=== PATIENT | male | born 1945 | race Caucasian/White ===

== ENCOUNTER 2022-05-08 07:44 | Emergency (ER) | payer OTHER ==
[~2022-05-08] VITALS: Ht 172.7 cm; Wt 63.5 kg
[2022-05-08] MEDS ORDERED: ASPIRIN (07:51)
[2022-05-08] MEDS ORDERED: IV NORMAL SALINE 500 ML BAG IV ONE ×2 (08:00→10:15)
[2022-05-08] MEDS ORDERED: ACETAMINOPHEN ES 500 MG TABLET PO ONE (08:00)
[2022-05-08] MEDS ORDERED: FENTANYL CITRATE 100 MCG/2 ML AMPUL IV ONE (08:15)
[2022-05-08] MEDS ORDERED: LIDOCAINE 1%-EPI 1:100,000 20 ML VIAL ONE (08:17)
[2022-05-08 08:18] LABS: HEMATOCRIT 36.6 % (36.7-47.1); PLATELET COUNT (AUTO) 357 K/uL (152-348)
[2022-05-08] MEDS ORDERED: IV NORMAL SALINE 250 ML IV ONE (08:25)
[2022-05-08] MEDS ORDERED: SWABABLE VALVE TRANSFER SET EA MC ONE (08:25)
[2022-05-08] MEDS ORDERED: IOHEXOL 300MG/ML 100 ML INFUS..BTL ONE (08:25)
[2022-05-08 08:26] LABS: CARBON DIOXIDE 32 mmol/L (21-32); CHLORIDE 102 mmol/L (98-107); CREATININE 0.9 mg/dL (0.6-1.3); GLUCOSE 125 mg/dL (74-106); POTASSIUM 3.5 mmol/L (3.5-5.1); UREA NITROGEN, BLOOD 17 mg/dL (7-18)
[2022-05-08] MEDS ORDERED: FENTANYL CITRATE 100 MCG/2 ML AMPUL ONE (08:32)
[2022-05-08 08:35] LABS: ALANINE AMINOTRANSFERASE 18 U/L (16-63); ALKALINE PHOSPHATASE 118 U/L (50-136); ASPARTATE AMINOTRANSFERASE 10 U/L (15-37); BILIRUBIN,DIRECT 0.1 mg/dL (0.0-0.2); BILIRUBIN,TOTAL 0.3 mg/dL (0.2-1.0); CREATINE KINASE, TOTAL 113 U/L (39-308); TOTAL PROTEIN, SERUM 6.8 g/dL (6.4-8.2)
--- NOTE | 2022-05-08 09:08 | NUR ---
PATIENT BIBEMS FROM HOME, S/P MECHANICAL FALL ONTO A PROCELAIN TRASH CAN THAT BROKE. PATIENT SUSTAINED MULTIPLE LACERATIONS TO HIS MID/LOWERR BACK, COCCYX/INNER (RT) BUTTOCK FOLD. PATIENT is A/O X 2, BUT OBSERVED WITH FACIAL GRIMACE AND FREQUENT POSITION CHANGE. PATIENT SEEN BY THE MD, #20G ANGIO-CATH INSERYTED TO (RT) A/C , BLOOD COLLECTED AND SENT.AND SITES CLEANED AND SUTURES AND HUONG IN PLACE. PATIENT MEDICATED FOR PAIN. PATIENT STABLE TRANSPORTED SAFETY TO CT FOR ADDITIONAL DIAGNOSTIC TYEST. PATIENT IS STABLE ON THE STRETCHER ION THE LOWEST POSITION, CALL PAINTING WITHIN REACH, AT THE BEDSIDE AND AWAITING DISPOSITION.
[2022-05-08] MEDS ORDERED: ACETAMINOPHEN ES 500 MG TABLET ONE (10:15)
[2022-05-08 10:27] LABS: HEMATOCRIT 34.1 % (36.7-47.1); MEAN CORPUSCULAR HEMOGLOBIN 29.7 uug (23.8-33.4); MEAN CORPUSCULAR VOLUME 91.7 fL (73.0-96.2); PLATELET COUNT (AUTO) 320 K/uL (152-348)
--- NOTE | 2022-05-08 15:45 | NUR ---
Patient continues to be observed with hypotension, afetr 1 liter of NS administration. Patient seen by the MD, 1 unit PRBC ordered. Patient S/P 15 minutes started and patient is tolerating the transfusion, educated on the S/S to inform if he is experiencing any symptoms. Patient is stable on the stretcher in the lowestposition, call wilcox within reach and the is at the bedside.
--- NOTE | 2022-05-08 17:45 | NUR ---
Patient completed and tolerated the transfusion. Patient is stable on the stretcher in the lowestposition, call wilcox within reach and the is at the bedside.
--- NOTE | 2022-05-08 18:00 | NUR ---
Called [facility] for higher level of care transfer per Dr. Richard request. Spoke with Genie and spoke with the ER physician at [place]. Per Dr.Hawk Silverio gave her auth to transfer pt to another facility for higher level of care.
[2022-05-08 19:00] LABS: MEAN CORPUSCULAR HEMOGLOBIN 29.6 uug (23.8-33.4); MEAN CORPUSCULAR VOLUME 92.9 fL (73.0-96.2); PLATELET COUNT (AUTO) 355 K/uL (152-348)
[2022-05-08] MEDS ORDERED: PIPERACILLIN SODIUM/TAZOBACTAM 3.375 G in IV DEXTROSE 5% 50 ML IV ONE (19:30)
[2022-05-08] MEDS ORDERED: PIPERACILLIN/TAZOBACTAM/D5W 50 ML IV ONE (20:02)
--- NOTE | 2022-05-08 20:34 | NUR ---
Received pt. from RN am shift. VSS at this time. at bedside.
--- NOTE | 2022-05-08 21:03 | NUR ---
Called [facility] for transfer of care, no availability at this time
--- NOTE | 2022-05-08 21:46 | NUR ---
CALLED [facility] , SPOKE TO NYASIA WHO STATES THEY ARE UNABLE TO ACCEPT PATIENT DUE TO THEY ARE ON DIVERSION AND ARE AT CAPACITY.
--- NOTE | 2022-05-08 21:50 | NUR ---
CALLED [facility] AND SPOKE TO JOVANY WHO STATES THEY ARE UNABLE TO ACCEPT PATIENT AT THIS TIME DUE TO BEING AT MAX CAPACITY AND ON DIVERSION.
[2022-05-08 22:36] LABS: *BILIRUBIN,URIN NEGATIVE (NEGATIVE); *BLOOD, URINE NEGATIVE (NEGATIVE); *CLARITY,URINE CLEAR (CLEAR); *KETONES,URINE NEGATIVE (NEGATIVE); *UROBILINOGEN,URINE 0.2 E.U./dl (NORMAL); NITRITE, URINE NEGATIVE (NEGATIVE); UGLUCOSE NEGATIVE (NEGATIVE)
[2022-05-08 22:44] LABS: *COLOR,URINE HAZY (YELLOW); LEUKOCYTE ESTERASE ,URINE NEGATIVE (NEGATIVE)
[2022-05-08 23:54] LABS: BAND % (MANUAL) 6 % (0-10); LYMPHOCYTES % (MANUAL) 4 % (20-40); MONOCYTES % (MANUAL) 4 % (2-10); NEUTROPHILS % (MANUAL) 86 % (42-75)
[2022-05-09] MEDS ORDERED: IV D5W-0.45% NS +20 KCL 1,000 ML IV ONE ×2 (04:00→04:34)
[2022-05-09] MEDS ORDERED: PIPERACILLIN SODIUM/TAZOBACTAM 3.375 G in IV DEXTROSE 5% 50 ML IV ONE (05:30)
[2022-05-09] MEDS ORDERED: PIPERACILLIN/TAZOBACTAM/D5W 0 ML IV ONE (05:59)
[2022-05-09] MEDS ORDERED: PIPERACILLIN/TAZOBACTAM/D5W 50 ML IV ONE (06:01)
[2022-05-09 06:07] LABS: HEMATOCRIT 32.8 % (36.7-47.1); MEAN CORPUSCULAR HEMOGLOBIN 29.7 uug (23.8-33.4); MEAN CORPUSCULAR VOLUME 91.4 fL (73.0-96.2); PLATELET COUNT (AUTO) 296 K/uL (152-348)
--- NOTE | 2022-05-09 08:16 | NUR ---
Roving Winder assumes care: 1st contact with patient, alseep, easily arousable, calm & cooperative at this time. Spouse is at bedside, pending accepting hospital at the moment. NAD.
--- NOTE | 2022-05-09 09:30 | NUR ---
Patient ate breakfast with good appetite, pending [facility] ambulance at this time. No acute change in condition seen.
--- NOTE | 2022-05-09 10:34 | NUR ---
Patient tranferred to outside facility: [facility] Physician: Sal Location: room 4115 RN Yaron accepted nursing report. [facility] ambulance unit#[id number] PRN staff: diagram clerk Celio accepted SBAR
== END 2022-05-09 10:34 | disposition short-term general hospital (02) ==
LOC: ER 07:44
DX: S21.219A Laceration without foreign body of unspecified back wall of thorax without penetration into thoracic cavity, initial encounter (principal); S31.010A Laceration without foreign body of lower back and pelvis without penetration into retroperitoneum, initial encounter; S31.821A Laceration without foreign body of left buttock, initial encounter; S31.811A Laceration without foreign body of right buttock, initial encounter; S71.012A Laceration without foreign body, left hip, initial encounter; W01.110A Fall on same level from slipping, tripping and stumbling with subsequent striking against sharp glass, initial encounter; Y92.012 Bathroom of single-family (private) house as the place of occurrence of the external cause; G20 Parkinson's disease; F02.80 Dementia in other diseases classified elsewhere, unspecified severity, without behavioral disturbance, psychotic disturbance, mood disturbance, and anxiety; G12.9 Spinal muscular atrophy, unspecified; J38.00 Paralysis of vocal cords and larynx, unspecified; Z93.0 Tracheostomy status; E78.5 Hyperlipidemia, unspecified; R15.9 Full incontinence of feces; Z79.82 Long term (current) use of aspirin; D62 Acute posthemorrhagic anemia; Z79.899 Other long term (current) drug therapy; Z86.73 Personal history of transient ischemic attack (TIA), and cerebral infarction without residual deficits; E11.9 Type 2 diabetes mellitus without complications; M50.30 Other cervical disc degeneration, unspecified cervical region; J98.11 Atelectasis; R58 Hemorrhage, not elsewhere classified; K57.30 Diverticulosis of large intestine without perforation or abscess without bleeding; K40.90 Unilateral inguinal hernia, without obstruction or gangrene, not specified as recurrent; K44.9 Diaphragmatic hernia without obstruction or gangrene
CPT/HCPCS: 36430; 12034; 12006; 80076; 80048; 81003; 82550; 85007; 85025 ×4; 85730; 86850; 86900; 86901; 86920; 87426; 84484 ×2; 36415 ×2; 93005; 70450; 71260; 72125; 74177; 99285; 96361; 96365; 96366 ×2; 96375; 83605; P9016; J3490; Q9967; J2543 ×2; J3010; J7040; 70030-TC; A9150; C1758